=== PATIENT | female | born 1940 | race Caucasian/White ===

== ENCOUNTER 2016-07-09 07:12 | Emergency (ER) | payer OTHER ==
[2016-07-09] MEDS ORDERED: ALCAINE 0.5% OPHTH SOLN LEFT EYE ONE (07:44)
[2016-07-09] MEDS ORDERED: ALCAINE 0.5% OPHTH SOLN ONE (07:46)
--- NOTE | 2016-07-09 08:28 | PROVIDER DOCUMENTATION ---
Addendum entered and electronically signed by Jermaine Hooks Scribe 07/09/16 09 :22: Departure - Departure Time of Disposition Order: 09:22 DIAGNOSIS: Left eye pain Glaucoma Qualifiers: Glaucoma type: other Laterality: left Qualified Code(s): H40.89 - Other specified glaucoma Disposition: HOME 01 Certified Medical Emergency: Emergent Condition: Stable Additional Instructions: follow up with tomorrow in office ED Follow Up Instructions: You have been treated by a care provider in the Emergency Department. These instructions are being provided to you so you can have an understanding of how to care for yourself upon discharge. Upon discharge from the Emergency Department, you are responsible for making arrangements for follow-up care by a physician of your choice. Take all prescribed medications as directed. Return to the Emergency Department immediately for any new or worsening symptoms. You may call the Physician Referral phone number at [phone] to obtain a list of Physicians who are taking new patients. Prescriptions: Brimonidine 0.2% Ophth Soln [Alphagan 0.2% Ophth Soln] 1 drop BOTH EYES Q8HR #1 bottle Referrals: Juan Foster [Primary Care Provider] - Instructions: Glaucoma, [id number] Original Note: HPI-Headache - General Source: patient - History of Present Illness-Headache Headache Location: reports: frontal, temporal (left) Quality of Pain: reports: aching, pressure Severity: reports: moderate Onset/Duration: reports: other (aobut one month) Timing: reports: still present Modifying Factors: improves with: nothing Associated Symptoms: denies: decreased ability to walk or stand, confusion, diaphoretic, seizures Recently seen or treated by another doctor?: Yes (eye doctor and PMD) <Julius Almaraz - Last Filed: 07/09/16 09:11> <Jermaine Hooks - Last Filed: 07/09/16 09:21> - General Chief Complaint: Headache Stated Complaint: EYE COMPLAINT Time Seen by Provider: 07/09/16 07:27 Allergies/Adverse Reactions: Patient Allergies Allergy/AdvReac Type Severity Reaction Status Date / Time bupropion HCl * Allergy Mild ANAPHYLAXIS Verified 12/18/15 23:37 [From Wellbutrin] levofloxacin [From Levaquin] AdvReac Intermediate SHORTNESS Verified 12/18/15 23 :37 OF BREATH acetaminophen [From Tylenol] AdvReac Mild Unknown Verified 12/18/15 23:37 amoxicillin trihydrate * AdvReac Mild DIARRHEA Verified 12/18/15 23:37 [From Augmentin] azithromycin [From Zithromax] AdvReac Mild HEADACHE Verified 12/18/15 23:37 cefuroxime axetil * AdvReac Mild DIARRHEA Verified 12/18/15 23:37 [From Ceftin] cephalexin monohydrate * AdvReac Mild NAUSEA Verified 12/18/15 23:37 [From Keflex] ciprofloxacin [From Cipro] AdvReac Mild DIZZINESS Verified 12/18/15 23:37 ciprofloxacin HCl * AdvReac Mild DIZZINESS Verified 12/18/15 23:37 [From Cipro] clarithromycin [From Biaxin] AdvReac Mild NAUSEA Verified 12/18/15 23:37 dexamethasone AdvReac Mild HEADACHE Verified 12/18/15 23:37 gatifloxacin [From Tequin] AdvReac Mild HEADACHE Verified 12/18/15 23:37 hydromorphone HCl * AdvReac Mild NAUSEA Verified 12/18/15 23:37 [From Dilaudid] metronidazole [From Flagyl] AdvReac Mild HEADACHE Verified 12/18/15 23:37 Metronidazole HCl * AdvReac Mild HEADACHE Verified 12/18/15 23:37 [From Flagyl] moxifloxacin HCl * AdvReac Mild DIZZINESS Verified 12/18/15 23:37 [From Avelox] nitrofurantoin AdvReac Mild Unknown Verified 12/18/15 23:37 macrocrystalline * [From Macrodantin] paroxetine HCl * [From Paxil] AdvReac Mild DIZZINESS Verified 12/18/15 23:37 potassium clavulanate * AdvReac Mild DIARRHEA Verified 12/18/15 23:37 [From Augmentin] sitagliptin phosphate * AdvReac Mild NAUSEA Verified 12/18/15 23:37 [From Januvia] Sulfa (Sulfonamide AdvReac Mild NAUSEA Verified 12/18/15 23:37 Antibiotics) sulfamethoxazole AdvReac Mild Unknown Verified 12/18/15 23:37 [From Bactrim] tapentadol HCl * AdvReac Mild NAUSEA Verified 12/18/15 23:37 [From Nucynta] Tetracyclines AdvReac Mild NAUSEA Verified 12/18/15 23:37 tramadol HCl * [From Ultram] AdvReac Mild HEADACHE Verified 12/18/15 23:37 trazodone AdvReac Mild FATIGUE Verified 12/18/15 23:37 trimethoprim [From Bactrim] AdvReac Mild Unknown Verified 12/18/15 23:37 citalopram hydrobromide * AdvReac HEADACHE Verified 12/18/15 23:37 [From Celexa] Home Medications: Home Medication List Medication Instructions Recorded Confirmed Last Taken Type Metformin [Glucophage] 500 mg PO BID 09/03/13 12/18/15 12/18/15 07:00 History Estradiol Vaginal Cream [Estrace 42.5 gm .SEE ORDER DIRECTED 03/04/1502/25/15 20:00 History Vaginal Cream] Estradiol [Vagifem] 10 mcg VG DIRECTED 03/04/15 12/18/15 12/17/15 21:00 History Cyclobenzaprine [Flexeril] 10 mg PO HS 07/15/15 12/18/15 12/18/15 21:00 History Lorazepam [Ativan] 1 mg PO BID 07/15/15 12/18/15 12/18/15 21:00 History Amoxicillin 500 mg PO Q8H 12/18/15 12/18/15 12/18/15 16:00 History Cetirizine [Zyrtec] 10 mg PO DAILY 12/18/15 12/18/15 12/18/15 16:00 History Fluconazole [Diflucan] 100 mg PO DAILY 12/18/15 12/18/15 12/18/15 16:00 History Hyoscyamine Subl [Levsin-Sl] 0.125 mg SL Q4H PRN 12/18/15 12/18/15 12/17/15 14: 00 History Metronidazole [Flagyl] 250 mg PO TID 12/18/15 12/18/15 12/18/15 16:00 History Sulfamethoxazole/Trimethoprim 1 each PO BID #14 tablet 12/19/15 Unknown Rx [Bactrim Ds Tablet] - History of Present Illness-Headache Nature of Presenting Problem: 75yo WF presents to the ED with her with c/o pain to the left frontal and salvador-orbital area for about one month. She states that she did fall about a month ago but does not think that she struck her head. She states that she has been seen by her eye doctor who found no problems with her eye even though she feels that her vision is diminished in the left eye. She also states that she has been seen by her PMD, Dr Foster who could not find an etiology either. She denies any fever. She denies any weakness or paresthesias of her extremities. (Julius Almaraz) Review of Systems - Adult - REVIEW OF SYSTEMS - ADULT Constitutional: denies: fever Eyes: reports: decreased vision (left eye). denies: discharge, redness Ears, Nose, Mouth & Throat: reports: no symptoms reported Cardiovascular: reports: no symptoms reported Respiratory: reports: no symptoms reported Gastrointestinal: reports: no symptoms reported. denies: nausea, vomiting Integumentary: denies: rash Neurological: denies: dizziness/vertigo, numbness, paresthesia, seizure <Julius Almaraz - Last Filed: 07/09/16 09:11> Past History - Adult - PAST MEDICAL HISTORY-ADULT Review of Records: reports: Nursing Assessment Review Major Childhood Illnesses: reports: denies history Cardiovascular: reports: HTN Psychiatric: reports: anxiety Endocrine/Immune: reports: Diabetes, thyroid disorder - PRIOR SURGERIES/PROCEDURES Surgical/Procedure History: reports: hysterectomy, bowel surgery (colectomy) - IMMUNIZATION STATUS Childhood Immunizations: See Nurse Assessment Flu Vaccine: See Nurse Assessment <Julius Almaraz - Last Filed: 07/09/16 09:11> Physical Exam- Neurological - Physical Exam-Neuro Initial Vital Signs Reviewed: Yes General Appearance: appears well, alert, no apparent distress Eye Exam: bilateral eye: normal inspection, PERRL, EOMI, other (Tonopen OS 32 OD 24) HENMT: normocephalic/atraumatic, moist mucous membranes Head Injury: no evidence of injury, other (no pulsatile or tenderness over the area of the temporal artery). negative: ecchymosis, tenderness Neck: non-tender, full range of motion, normal inspection. negative: Brudzinski 's sign, lymphadenopathy Respiratory: chest non-tender, lungs clear, normal breath sounds Cardiovascular: normal peripheral pulses, regular rate, rhythm, no edema Abdominal Exam: normal bowel sounds, non tender, soft Peripheral Pulses: radial (R): 2+, radial (L): 2+ Extremity: normal range of motion, non-tender, normal gait. 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 negative: facial droop Coordination/Gait: normal gait Motor/Sensory: no motor deficit, no sensory deficit Neurologic: cryptographic machine operator II-XII nml as tested, grossly normal, no motor/sensory deficits Integumentary: normal color, normal turgor. 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) Time Discussed: 09:10 Reason/Comments: write Alphagan drops, have her f/u in office Consult Disposition: F/U in office <Jermaine Hooks - Last Filed: 07/09/16 09:21> - PLAN OF CARE/RESULTS Progress/Plan/Lab Results: Vital Signs Temp Pulse Resp BP Pulse Ox 07/09/16 07:21 97.8 F 71 16 169/85 100 bupropion HCl * [From Wellbutrin] Allergy (Mild, Verified 12/18/15 23:37) ANAPHYLAXIS levofloxacin [From Levaquin] Adverse Reaction (Intermediate, Verified 12/18/15 23:37) SHORTNESS OF BREATH nervousnees increased hr acetaminophen [From Tylenol] Adverse Reaction (Mild, Verified 12/18/15 23:37) Unknown doesnt help per pt amoxicillin trihydrate * [From Augmentin] Adverse Reaction (Mild, Verified 12/17 23:37) DIARRHEA azithromycin [From Zithromax] Adverse Reaction (Mild, Verified 12/18/15 23:37) HEADACHE cefuroxime axetil * [From Ceftin] Adverse Reaction (Mild, Verified 12/18/15 23: 37) DIARRHEA cephalexin monohydrate * [From Keflex] Adverse Reaction (Mild, Verified 23:37) NAUSEA ciprofloxacin [From Cipro] Adverse Reaction (Mild, Verified 12/18/15 23:37) DIZZINESS ciprofloxacin HCl * [From Cipro] Adverse Reaction (Mild, Verified 12/18/15 23:37 ) DIZZINESS clarithromycin [From Biaxin] Adverse Reaction (Mild, Verified 12/18/15 23:37) NAUSEA insomnia dexamethasone Adverse Reaction (Mild, Verified 12/18/15 23:37) HEADACHE insomnia gatifloxacin [From Tequin] Adverse Reaction (Mild, Verified 12/18/15 23:37) HEADACHE nausea hydromorphone HCl * [From Dilaudid] Adverse Reaction (Mild, Verified 12/18/15 23 :37) NAUSEA metronidazole [From Flagyl] Adverse Reaction (Mild, Verified 12/18/15 23:37) HEADACHE Metronidazole HCl * [From Flagyl] Adverse Reaction (Mild, Verified 12/18/15 23: 37) HEADACHE moxifloxacin HCl * [From Avelox] Adverse Reaction (Mild, Verified 12/18/15 23:37 ) DIZZINESS insomnia palpatations, sweating nitrofurantoin macrocrystalline * [From Macrodantin] Adverse Reaction (Mild, Verified 12/18/15 23:37) Unknown paroxetine HCl * [From Paxil] Adverse Reaction (Mild, Verified 12/18/15 23:37) DIZZINESS potassium clavulanate * [From Augmentin] Adverse Reaction (Mild, Verified 23:37) DIARRHEA sitagliptin phosphate * [From Januvia] Adverse Reaction (Mild, Verified 23:37) NAUSEA Sulfa (Sulfonamide Antibiotics) Adverse Reaction (Mild, Verified 12/18/15 23:37) NAUSEA sulfamethoxazole [From Bactrim] Adverse Reaction (Mild, Verified 12/18/15 23:37) Unknown tendenitis in hand tapentadol HCl * [From Nucynta] Adverse Reaction (Mild, Verified 12/18/15 23:37) NAUSEA Tetracyclines Adverse Reaction (Mild, Verified 12/18/15 23:37) NAUSEA yeast inf tramadol HCl * [From Ultram] Adverse Reaction (Mild, Verified 12/18/15 23:37) HEADACHE trazodone Adverse Reaction (Mild, Verified 12/18/15 23:37) FATIGUE trimethoprim [From Bactrim] Adverse Reaction (Mild, Verified 12/18/15 23:37) Unknown tendenitis in hand citalopram hydrobromide * [From Celexa] Adverse Reaction (Verified 12/18/15 23: 37) HEADACHE Metformin [Glucophage] 500 mg PO BID 09/03/13 Estradiol Vaginal Cream [Estrace Vaginal Cream] 42.5 gm .SEE ORDER DIRECTED 03/04/15 Estradiol [Vagifem] 10 mcg VG DIRECTED 03/04/15 Cyclobenzaprine [Flexeril] 10 mg PO HS 07/15/15 Lorazepam [Ativan] 1 mg PO BID 07/15/15 Amoxicillin 500 mg PO Q8H 12/18/15 Cetirizine [Zyrtec] 10 mg PO DAILY 12/18/15 Fluconazole [Diflucan] 100 mg PO DAILY 12/18/15 Hyoscyamine Subl [Levsin-Sl] 0.125 mg SL Q4H PRN 12/18/15 Metronidazole [Flagyl] 250 mg PO TID 12/18/15 Sulfamethoxazole/Trimethoprim [Bactrim Ds Tablet] 1 each PO BID #14 tablet 12/18 Laboratory 07/09/16 07/09/16 08:38 08:38 WBC 7.95 RBC 4.45 Hgb 12.6 Hct 37.0 MCV 83.1 MCH 28.3 MCHC 34.1 RDW Std Deviation 14.7 H Plt Count 219 MPV 10.0 Immature Gran % (Auto) 0.3 Neut % (Auto) 76.5 H Lymph % (Auto) 14.2 L [place] % (Auto) 6.9 Eos % (Auto) 1.8 Baso % (Auto) 0.3 Immature Gran # (Auto) 0.02 Neut # (Auto) 6.09 Lymph # (Auto) 1.13 L [place] # (Auto) 0.55 Eos # (Auto) 0.14 Baso # (Auto) 0.02 Sodium 141 Potassium 4.2 Chloride 100 Carbon Dioxide 23 L Anion Gap 18 BUN 8 Creatinine 0.9 Estimated GFR/1.73 m2 > 60 BUN/Creatinine Ratio 9 Glucose 226 H Calculated Osmolality 287 Calcium 9.2 Total Bilirubin 0.24 AST 16 ALT 16 Alkaline Phosphatase 50 C-Reactive Prot, Quant 5.34 H Total Protein 6.8 Albumin 4.2 Globulin 2.6 Albumin/Globulin Ratio 1.6 Orders Category Date Time Status Saline Loc NOW Care 07/09/16 07:41 Active Visual Acuity DIRECTED Care 07/09/16 07:41 Active HEAD W/O CONTRAST [CT] Stat Exams 07/09/16 07:40 Draft C REACTIVE PROT QUANT [CHEM] Stat Lab 07/09/16 08:38 Completed CBC WITH DIFF [HEME] Stat Lab 07/09/16 08:38 Completed COMPREHENSIVE METABOLIC PANEL [CHEM] Stat Lab 07/09/16 08:38 Completed Proparacaine 0.5% Ophth Soln [Alcaine 0.5% Ophth Soln] Med 07/09/16 07:46 Discontinued 15 ml .ROUTE .STK-MED ONE Proparacaine 0.5% Ophth Soln [Alcaine 0.5% Ophth Soln] Med 07/09/16 07:44 Discontinued 2 ml LEFT EYE NOW ONE pt will be d/c home f/u with pcp, pt was clinically stable, rx given. pt understood instructions and results (Jermaine Hooks) Procedures - EYE PROCEDURES Alcaine Drops Administered: Yes Eye(s) Irrigated?: No Franco Lens Used for Irrigation?: No Eye Exam: Ocular Tonometry Remaining Material after Foreign Body Removal: None <Jermaine Hooks - Last Filed: 07/09/16 09:21> Departure <Julius Almaraz - Last Filed: 07/09/16 09:11> - Departure Time of Disposition Order: 09:18 Certified Medical Emergency: Emergent <Jermaine Hooks - Last Filed: 07/09/16 09:21> - Departure DIAGNOSIS: Left eye pain Glaucoma Qualifiers: Glaucoma type: other Laterality: left Qualified Code(s): H40.89 - Other specified glaucoma Disposition: HOME 01 Condition: Stable Additional Instructions: follow up with next week ED Follow Up Instructions: You have been treated by a care provider in the Emergency Department. These instructions are being provided to you so you can have an understanding of how to care for yourself upon discharge. Upon discharge from the Emergency Department, you are responsible for making arrangements for follow-up care by a physician of your choice. Take all prescribed medications as directed. Return to the Emergency Department immediately for any new or worsening symptoms. You may call the Physician Referral phone number at [phone] to obtain a list of Physicians who are taking new patients. Referrals: Juan Foster [Primary Care Provider] - Instructions: Glaucoma, [id number] Attestation - Scribe Verification/Attestation Scribe:: Jermaine Hooks Acting as Scribe for:: Julius Almaraz Scribe documention review:: This chart was documented by a scribe and accurately reflects the service the provider performed and the decisions made by the provider. <Jermaine Hooks - Last Filed: 07/09/16 09:21> Physician Attestation - Physician Attestation I, the provider, attest to the following statement:: Julius Almaraz Physician documentation Attestation:: This documentation recorded by the scribe accurately reflects the service I personally performed and the decisions made by me. <Jermaine Hooks - Last Filed: 07/09/16 09:21>
--- NOTE | 2016-07-09 08:30 | Diag Imaging Result Document ---
PROCEDURE NAME: HEAD W/O CONTRAST - 07/09/2016 CT BRAIN WITHOUT. DOSE REDUCTION PROTOCOL. COMPARISON: 07/15/2015. FINDINGS: No parenchymal hemorrhage. No epidural or subdural hematoma. No subarachnoid hemorrhage. There are chronic microvascular ischemic changes. No hydrocephalus. No mass identified on this noncontrasted exam. No sinus opacification. No air fluid levels. IMPRESSION: 1. No hemorrhage. 2. Mild chronic microvascular ischemic changes. A preliminary report was given at 8:16 a.m..
[2016-07-09 08:53] LABS: MANUAL DIFF NEEDED? NO
[2016-07-09 08:55] LABS: BASO% 0.3 % (0.0-0.8); EOS# 0.14 X1000 (0.0-0.7); EOS% 1.8 % (0.0-10.0); HEMOGLOBIN 12.6 g/dL (12.0-16.0); IMM GRAN# 0.02 X1000 (0.0-0.04); IMM GRAN% 0.3 % (0.0-0.5); LYMPH# 1.13 X1000 (1.2-3.4); LYMPH% 14.2 % (20.5-51.1); MCH 28.3 PG (27-31); MCHC 34.1 g/dL (33-37); MCV 83.1 FL (81-99); MONO# 0.55 X1000 (0.11-0.59); MONO% 6.9 % (1.7-9.3); NEUT% 76.5 % (42.2-75.2); PLT 219 X1000 (130-400); RBC 4.45 XMIL (4.2-5.4)
[2016-07-09 09:10] LABS: AGAP 18; ALBUMIN 4.2 g/dL (3.5-5.0); ALKALINE PHOSPHATASE 50 U/L (32-104); BUN 8 mg/dL (8-22); CALCIUM 9.2 mg/dL (8.8-10.2); CHLORIDE 100 mmol/L (98-107); COSMO 287; GOT 16 U/L (10-30); GPT 16 U/L (10-36); POTASSIUM 4.2 mmol/L (3.5-5.1); SODIUM 141 mmol/L (136-145); TCO2 23 mmol/L (25-35); TOTAL BILIRUBIN 0.24 mg/dL (0.20-1.00); TOTAL PROTEIN 6.8 g/dL (6.3-8.3)
[2016-07-09] MEDS ORDERED: ALPHAGAN 0.2% OPHTH SOLN LEFT EYE ONE (09:16)
[2016-07-09] MEDS ORDERED: TORADOL IV ONE (09:22)
[2016-07-09 10:10] VITALS: BP 160/79
== END 2016-07-09 10:08 | disposition home or self-care (01) ==
LOC: ED 07:12
DX: H40.89 Other specified glaucoma (principal); H57.12 Ocular pain, left eye; H54.7 Unspecified visual loss; I10 Essential (primary) hypertension; E11.9 Type 2 diabetes mellitus without complications; E07.9 Disorder of thyroid, unspecified; Z90.49 Acquired absence of other specified parts of digestive tract; F41.9 Anxiety disorder, unspecified; Z79.899 Other long term (current) drug therapy
CPT/HCPCS: 70450; 80053; 85025; 86140; J1885